=== PATIENT | female | born 1950 | race Caucasian/White ===

== ENCOUNTER 2016-06-24 08:42 | Inpatient (IN) | payer MEDICARE, OTHER ==
--- NOTE | ~2016-06-24 | HP ---
Unit #: [id number] #: [id number] Patient: VIDHYA CHASE [id number] [facility] [address] [facility]. [place], [place] [address] [id number] I MR#: [id number] NAME: VIDHYA CHASE ROOM: 26489 Age: 65 Sex: F Admission Date: 06/24/2016 : 1950 Attending Physician: Korin Jack M.D. Primary Care Physician: Kitty Nichols A.P.R.N. HISTORY AND PHYSICAL CHIEF COMPLAINT Shortness of breath. HISTORY OF PRESENT ILLNESS The patient is a 65-year-old female with history of breast cancer stage IV metastasis to liver and bones, history of PE back in 2016, was recently discharged from the [facility] status post resection of the metastatic lesion along with frozen biopsy and prophylactic fixation of the left femur with IM nailing. Discharged to [facility] at [facility]. The patient was brought from [facility] to [facility] with shortness of breath and respiratory distress with her saturations to 86% at 4 L. The patient was doing well with therapy and since then, the patient started feeling shakiness and started having nonproductive cough. The patient denies any fever. Denies any nausea or vomiting. The patient complains of soreness at the left hip but the incisions are clean, dry, and no chest pain. PAST MEDICAL HISTORY 1. History of stage IV metastatic breast cancer to ribs and liver and bone. 2. Patient had osteolytic lesions of the femur, status post IM nailing. 3. GERD. 4. Diabetes. 5. Pulmonary embolism. 6. History of irritable bowel syndrome. 7. History of asthma. PAST SURGICAL HISTORY 1. History of right breast lumpectomy. 2. Left femur frozen bone biopsy. 3. IM nailing of the left femur. 4. Cholecystectomy. 5. Hysterectomy. 6. Port placement. ALLERGIES Sulfa and codeine. SOCIAL HISTORY No history of smoking, alcohol, or any illicit drug abuse. MEDICATIONS 1. Oxycodone. Unit #: [id number] #: [id number] Patient: VIDHYA CHASE 2. Potassium chloride. 3. [place]. 4. Antacid. 5. Vitamin D3. 6. Multivitamin. 7. Lovenox. 8. Flovent. 9. Neurontin. 10. Ambien p.r.n. 11. Senokot. 12. Flomax. 13. Vitamin C. 14. Pantoprazole. 15. Turmeric complex. 16. Polyethylene glycol. 17. Loperamide. REVIEW OF SYMPTOMS A 14-point review of symptoms performed and only pertinent positive findings are described above, remaining are negative. PHYSICAL EXAMINATION GENERAL: On examination, the patient is lying on a bed not in acute distress. VITAL SIGNS: Temperature 97.9, pulse 103, respiratory rate 24, blood pressure 110/60, and saturating 86% at 4 L nasal cannula. HEENT: Head: Atraumatic, normocephalic. Pupils equal, round, and reactive to light and accommodation. Extraocular movements are intact. Dry mucous membranes. NECK: Supple. LUNGS: Decreased air entry at the bases. Positive for rhonchi. HEART: Regular rate and rhythm. ABDOMEN: Soft. EXTREMITIES: Status post IM nailing of the left femur by Dr. Elise. Positive for pedal edema. DIAGNOSTIC STUDIES LABORATORY: Glucose 97, BUN 36, creatinine 1.4, sodium 128, potassium 4.8, chloride 96, bicarbonate 25, calcium 12.5. Total protein 5.6, albumin 1.7, AST 175, ALT 55, alkaline phosphatase 300, lipase 16. BNP is 93. Lactic acid is 2.7. INR is 1.3. WBC 11, hemoglobin 9.5, hematocrit 29.3, platelets 203,000. INR is 1.3. IMAGING: Chest x-ray shows persistent xuwwo-hx-hvemqghz right pleural effusion, right basilar atelectasis/infiltrate, mild left basilar atelectasis not thought to be significantly changed compared to yesterday's study. Abnormal thickening of the right seventh rib posteriorly could represent changes related to metastatic disease or healed or healing right rib fracture. ASSESSMENT 1. Sepsis. 2. Pneumonia. 3. History of breast cancer with metastasis with mets to bone. PLAN Plan to admit to inpatient, telemetry, and sepsis protocol. IV antibiotics. Will have the pulmonary consult with Dr. Weems and repeat Unit #: [id number] #: [id number] Patient: VIDHYA CHASE the labs again in the morning and further recommendations will follow. Dictated by AmSalvador Shelton TD: 06/24/2016 12:13 JOB #: [id number] HISTORY AND PHYSICAL Page 1 of 1 X X HISTORY AND PHYSICAL
--- NOTE | ~2016-06-24 | A ---
[facility] Nutrition Therapy DATE: 06/26/16 Patient: VIDHYA CHASE Physician: ASHLI Address: [address] [place] [address] Room/Bed: [address] [place] [address], Zip: [place] [address] Admit Date: 06/24/16 Date of : [birth year] Height: 5 2 Weight: 165 75 NUTRITIONAL ASSESSMENT: REASON: MD consult re: protein malnutrition Admitting Dx: 65 y/o female admitted from [facility] with SOB, possible PNA PMH: Stage IV breast cancer w/ mets to liver and bones, PE, DM, GERD, IBS, asthma Anthropometrics: Ht: 62", Wt: 159 lbs, BMI: 29.1 (overweight), highest weight: 300 lbs Labs: Na 129, BUN 42, AST 175, ALT 55, T. bili 2.9, Alk phos 300 (06/24), GFR 38.3, no A1C or glucose POC, glucose WNL, K WNL, Mg/Phos WNL on 06/25 Meds: Tumeric complex, olive leaf extract, MVI with minerals, Vitamin C, Vitamin D, Senokot, Loperamide, Miralax, Furosemide, Tums, PPI I/O & Bowel function: Regular BM's per , last BM 06/24, abdomen distended/swollen per RD observation Skin Integrity: Redness buttocks/L heel, incision/sutures L hip/knee, scars noted Edema: GUANACO feeet 1+, general-generalized Estimated Nutrition Needs: Increased needs related to cancer Assessment: Chart reviewed, events noted. RD consulted by MD to evaluate for protein malnutrition. Patient recently discharged from [facility] s/p resection of mets lesion on femur with femur fixation and nailing. Transferred to [facility] and then [facility] after she became short of breath. She is on 5L nasal cannula. See PMH regarding Stage IV breast cancer with mets to liver and bone. states she has been battling this cancer for 14 years. Dietary and weight history is obtained from the , as the patient herself is not appropriate for interview. puts UBW around 157-160 lbs, however he states at [facility] they told him she weighed 180 lbs, which is most likely inaccurate. reports the patient intentionally lost ~100 lbs about a year and a half ago due to obesity and wanting to be healthier, max weight in lifetime is 300 lbs. states the patient's weight has been stable since the intentional weight loss over a year and a half ago. This RD previously assessed the patient on 05/21/15 due to 40 lb weight loss/ eating poorly- note reviewed- weight at that time documented as 206 lbs, ?accuracy. states they weigh the patient at the [facility] and at home often, he also assists the patient with feeding and ordering meals. He says she consistently eats "most of" 3 meals per day at home, however she does take longer to eat meals and requires prompting. Says she ate ~50% of breakfast this morning on healthy heart diet, items on tray were "light." Says she does like vanilla Ensure, which she has been receiving every [facility] DATE: 06/26/16 Patient: VIDHYA CHASE Physician: ASHLI Address: [address] [place] [address] Room/Bed: [address] [place] [address], Zip: [place] [address] Admit Date: 06/24/16 Date of : [birth year] Height: 5 2 Weight: 165 75 morning- he is requesting TID- will order. Discussed liberalizing diet to regular, encouraged him to continue to help feed her and encourage meals, giving her whatever she wants. He states she seemingly has no chewing/swallowing difficulties, just takes longer to eat meals. Although I observed moderate temporal/buccal depression suggesting some degree of muscle loss, the rest of her body is well nourished. Extra skin/stalky extremities observed, likely due to prior obesity followed by intentional weight loss. Due to the above, the patient does not meet criteria for protein calorie malnutrition. She is DNR, MD notes grave prognosis. Will liberalize diet, order supplements, and follow hospital course to further assess PO intake and nutritional needs. Please see recommendations below. Dx: Increased nutrient needs r/t increased metabolic demand AEB Stage IV cancer, need for liberalized diet and ONS. Intervention: Regular diet, Ensure TID Monitoring, Evaluation and Goals: 1. Adequate oral intake > 75% of meals. 2. Adequate supplement intake > 75% TID. 3. Maintain current weight status and lean body mass. 4. Promote regular BM's. Monitor: Per protocol, criteria to determine if above goals met Recommendations: 1. Please change diet to Regular to liberalize food choices, as the patient has increased nutrient needs related to cancer/recent surgery and high metabolic demand. Appreciate staff/family to continue to encourage oral intake and assist with feeding and ordering meals as needed. is very helpful with this. 2. Please order vanilla Ensure Enlive TID to provide extra kcals/protein to help meet increased nutrient needs. Patient eating pretty well at this time- most of 3 meals per day, however she could benefit from supplementation. 3. Fluids per MD noting hyponatremia. If TID liquid supplement intake is not desired or fluid restriction is initiated change to vanilla Ensure pudding TID, which would not cound towards oral fluid intake. 4. Please weigh q 3 days for monitoring purposes. 5. Continue bowel regimen as needed. Suggest continuing daily vitamins, however herbal [facility] DATE: 06/26/16 Patient: VIDHYA CHASE Physician: ASHLI Address: [address] [place] [address] Room/Bed: [address] [place] [address], Zip: [place] [address] Admit Date: 06/24/16 Date of : [birth year] Height: 5 2 Weight: 165 75 supplements are not recommended. 6. Due to the above assessment regarding weight, dietary history and physical assessment, the patient does not meet criteria for protein calorie malnutrition. Will continue to monitor. Mild-moderate nutrition risk Respectfully, Gina Jin RD, NA[facility] [employer] [facility] cc: client file
--- NOTE | ~2016-06-24 | CO ---
Unit #: [id number] #: [id number] Patient: VIDHYA CHASE [id number] [address] [facility]. [place], [place] [address] [id number] I MR#: [id number] NAME: VIDHYA CHASE ROOM: [facility] Age: 65 Sex: F Admission Date: 06/24/2016 : 1950 Attending Physician: Korin Jack M.D. Primary Care Physician: Kitty Nichols A.P.R.N. Consultation Date: 06/24/2016 CONSULTATION REPORT REASON FOR CONSULTATION Respiratory failure. HISTORY OF PRESENT ILLNESS This 65-year-old female, who was at [facility] not long ago, underwent left femur nailing for metastatic deposit. She then was at [facility] [place] when she developed malaise and weakness. She was sent to the emergency room and saturations were low on 4 L. The patient is fairly nonverbal. She will open her eyes and look at me and give me one word answers. She denies shortness of breath, pain, or sputum. Most of the history was gathered from her family which is at bedside. PAST MEDICAL HISTORY 1. Widely metastatic breast cancer. 2. Diabetes. 3. History of PE. 4. Gastroesophageal reflux. 5. History of irritable bowel syndrome. 6. Asthma. ALLERGIES Sulfa and codeine. MEDICATIONS According to the EHR: 1. Oxycodone. 2. Potassium. 3. Lovenox, unknown dose. 4. Flovent. 5. Neurontin. 6. Ambien. 7. Senokot. 8. Flomax. 9. Protonix. 10. Variety of vitamins and herbs. SOCIAL HISTORY She does not smoke or drink. FAMILY HISTORY No familial lung disease. REVIEW OF SYSTEMS Unit #: [id number] #: [id number] Patient: VIDHYA CHASE Essentially unobtainable. PHYSICAL EXAMINATION VITAL SIGNS: The patient is afebrile. Pulse is 96, respiratory rate 20, blood pressure is 106/55. She is 5 foot 2, 159 pounds. HEENT: Pupils equal, round, reactive to light. Sclerae anicteric. Head atraumatic. Neck supple. No supraclavicular or cervical adenopathy appreciated. Mucous membranes moist. CHEST: No wheeze, stridor. Decreased breath sounds. CARDIAC EXAMINATION: Regular rate and rhythm. There is a systolic murmur. No definite gallop. ABDOMEN: Obese. There may be some ascites. Nontender. EXTREMITIES: Massive edema bilateral lower extremities, sacrum, abdominal wall. She has right arm greater than left arm edema and the family states that this has been present, albeit to a lesser extent, since her lumpectomy and lymphadenectomy on the right. SKIN: Warm and dry without rash or diaphoresis. NEUROLOGICAL: Lethargic but will open her eyes and answer questions. Did not cooperate with a full exam. DIAGNOSTIC STUDIES IMAGING: Chest x-ray limited by body habitus, portable film, but has what appears to be a large right greater than left pleural effusions. Unclear if there is underlying infiltrate. LABORATORY: Creatinine is 1.4, sodium is 128, albumin is only 1.7, bilirubin is somewhat elevated at 2.9 but I believe she has liver mets. Lactic acid 2.5, BNP is 93, INR is 1.3, D-dimer is greater than 2000. Cardiac enzymes negative. White blood cell count 11, hemoglobin 9.5, platelet count 203. Blood cultures performed and are pending. CARDIOVASCULAR: EKG - nonspecific ST-T wave changes. IMPRESSION 1. Respiratory failure, unclear etiology: Certainly pneumonia is a possibility. Also suspect she has large bilateral pleural effusions which could be transudative secondary to her anasarca, could be malignant, could be parapneumonic. 2. Widely metastatic breast cancer. 3. Status post recent left prophylactic femur surgery. 4. Anasarca. 5. Anemia. 6. Medical problems listed above. PLAN Antibiotics. Oxygen to maintain adequate saturations. Echocardiogram, CT angiogram and a trial of Lasix. I will ask for a procalcitonin level on today's blood. Further recommendations based on above. 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 Dictated by... Unit #: [id number] #: [id number] Patient: CHASE,VIDHYA Alves M.D. NANCY/reji TD: 06/25/2016 06:08 JOB #: [id number] CONSULTATION REPORT Page 1 of 1 X Alon Alves MD CONSULTATION REPORT
--- NOTE | ~2016-06-24 | CR72 ---
[facility] A Service of [facility] RADIOLOGY TEXT RESULTS PATIENT: VIDHYA CHASE LOCATION: A 307-01 : [birth year] UNIT #: [id number] AGE: [address]: Caterina June MD SEX: F ORDER DR: [id number] [facility] [address] [facility]. [place], [place] [address] [id number] MR#: [id number] Acc #: [id number] NAME: VIDHYA CHASE : 1950 SEX: F STUDY DATE/TIME: 06/24/2016 9:03 UNIT: [facility] ROOM: STUDY DESCRIPTION: CR Chest Single View Portable Attending Physician: Ced Warner M.D. Ordering Physician: Ced Warner M.D. Primary Care Physician: Kitty Nichols A.P.R.N. MEDICAL IMAGING REPORT This report is preliminary unless electronic signature is present EXAM AP portable chest DATE 06/24/2016 0903 HISTORY 65-year-old female with stage 4 breast cancer. Shortness of breath today. Diabetes. Former smoker. Asthma. COMPARISON PA and lateral chest 06/23/2016. CT angiography of the chest with contrast 05/20/2015. FINDINGS Low volume inspiration. Wpgrs-nm-dthywajt right pleural effusion with right basilar atelectasis/consolidation again noted. Mild left basilar atelectasis or infiltrate is seen, not significantly changed. Heart size is stable. Left chest wall will catheter extends to the cavoatrial junction. No pneumothorax is visible. Multiple surgical clips are seen within the right chest wall. Multilevel degenerative endplate changes within the thoracic spine, and degenerative spurring of the left shoulder. Expansile change or thickening of the right seventh rib posteriorly could represent a healed or healing fracture or changes of osseous metastatic disease. IMPRESSION 1. Persistent epror-fd-mdpapmvk right pleural effusion with right basilar atelectasis/infiltrate, mild left basilar atelectasis, not thought to be significantly changed compared to yesterday's study. 2. Abnormal thickening of the right seventh rib posteriorly could represent changes related to metastatic disease or healed or healing right rib fracture. STS. [facility] A Service of [facility] & [facility] RADIOLOGY TEXT RESULTS PATIENT: VIDHYA CHASE LOCATION: [facility] 307-01 : [birth year] UNIT #: [id number] AGE: [address]: Caterina June MD SEX: F ORDER DR: Dictated by... Emperatriz Bhatt M.D. THIS IS AN ELECTRONICALLY VERIFIED REPORT Emperatriz Bhatt M.D. at 06/25/2016 9:41 AM PAULINA/harvey TD: 06/24/2016 10:52 JOB #: [id number] MEDICAL IMAGING REPORT Page 1 of 1 COPY
--- NOTE | ~2016-06-24 | EKG ---
PATIENT: VIDHYA CHASE UNIT #: [id number] Ventricular Rate: 99 BPM Atrial Rate: 99 BPM P-R Interval: 134 ms QRS Duration: 94 ms Q-T Interval: 334 ms QTC Calculation(Bezet): 428 ms P [place]: 15 degrees Calculated R [place]: -10 degrees Calculated T [place]: 72 degrees Diagnosis Line: Normal sinus rhythm Diagnosis Line: Baseline wander Non-specific intra-ventricular Diagnosis Line: conduction block Diagnosis Line: When compared with ECG of 20-MAY-2015 09:44, Diagnosis Line: T wave inversion now evident in Lateral leads Diagnosis Line: QT has shortened Diagnosis Line: Confirmed by CHLOE CHERRY MD ([id number]) on 06/26/2016 Diagnosis Line: 10:27:20 AM INTERPRETING MD: JO ANN JOSE
--- NOTE | ~2016-06-24 | CT57 ---
[facility] A Service of [facility] & [facility] RADIOLOGY TEXT RESULTS PATIENT: VIDHYA CHASE LOCATION: A 307- : [birth year] UNIT #: [id number] AGE: [address]: Caterina June MD SEX: F ORDER DR: [id number] [facility] [address] [facility]. [place], [place] [address] [id number] I MR#: [id number] Acc #: [id number] NAME: VIDHYA CHASE : 1950 SEX: F STUDY DATE/TIME: 06/25/2016 11:28 UNIT: A U ROOM: [facility] STUDY DESCRIPTION: CT Chest Wo Cont Attending Physician: Caterina June M.D. Ordering Physician: Caterina June M.D. Primary Care Physician: Kitty Nichols A.P.R.N. MEDICAL IMAGING REPORT This report is preliminary unless electronic signature is present EXAM CT of the chest without contrast INDICATIONS Shortness of breath and cough since June 24, 2016. TECHNIQUE Axial CT images were obtained from the thoracic inlet through the dome of the diaphragm. No oral or intravenous contrast material was administered. This CT exam was performed with one or more of the following radiation dose reduction techniques: automatic control, adjustment of mA and/or kV according to patient size, and iterative reconstruction. FINDINGS Patient is noted to have patchy infiltrates throughout both lungs. These are more pronounced on the right and are associated air bronchograms noted, I suspect this reflects multifocal pneumonia but certainly correlation with clinical presentation is recommended. Patient is noted to have some prominent mediastinal lymph nodes which have increased in size when compared to the prior exam, with a right paratracheal node measuring up to 1.9 x 1.4 cm in an AP window node measuring 1.5 x 0.9 cm. Main pulmonary artery is enlarged which can be seen in the setting of pulmonary arterial hypertension. Patient's thyroid gland is noted to be heterogeneous. There is a left subclavian MediPort which extends into the superior vena cava. There are postsurgical changes seen within the right axilla and breast. This patient's liver is markedly enlarged measuring over 19.8 cm in craniocaudal dimensions. It is also extremely heterogeneous in attenuation. This is a new finding when compared to the prior examination and I think the appearance is certainly worrisome for widespread malignant involvement of the liver. Patient is noted to have some ascites within the upper abdomen including some subdiaphragmatic fluid as well as some fluid seen at the cardiophrenic angle. The fluid at the cardiophrenic angle is present on the prior CT from May 2015 but [facility] A Service of [facility] RADIOLOGY TEXT RESULTS PATIENT: VIDHYA CHASE LOCATION: C3A 307-01 : [birth year] UNIT #: [id number] AGE: [address]: Caterina June MD SEX: F ORDER DR: certainly has increased. There is a fat-containing epigastric hernia. Review of bony windows show new lytic lesions when compared to the prior study characteristic of osseous metastatic disease. For example there is a 1.4 cm lesion noted in the T8 vertebral body. Multiple additional lesions are seen within the ribs including some of which appear to be associated pathologic fractures. Scapular and humeral involvement is noted as well. IMPRESSION 1. Patient does have infiltrates, within both lungs. These certainly could reflect a multifocal pneumonia. Underlying neoplastic component cannot be excluded however in a patient with evidence of widespread metastatic disease. Short-term followup exam to document resolution is suggested. Patient is also noted to have some enlarged mediastinal nodes. These certainly could be reactive, in the setting of pneumonia. Again the possibility of additional malignant involvement certainly is not excluded. 2. Cirrhotic morphology to the liver with suspicion for diffuse metastatic involvement. Liver is markedly enlarged, patient also has evidence of widespread osseous metastatic disease as well. 3. Trace right pleural effusions small, loculated left pleural effusion. 4. Please see the body of report for other additional incidental findings. Dictated by... Rani Olivera M.D. THIS IS AN ELECTRONICALLY VERIFIED REPORT Rani Olivera M.D. at 06/25/2016 4:14 PM AFF/rnr TD: 06/25/2016 12:35 JOB #: [id number] MEDICAL IMAGING REPORT Page 1 of 1 COPY
--- NOTE | ~2016-06-24 | DS ---
Unit #: [id number] #: [id number] Patient: VIDHYA CHASE [id number] [address] [id number] MR#: [id number] NAME: VIDHYA CHASE ROOM: [facility] Age: 66 Sex: F Admission Date: 06/24/2016 : 1950 Discharge Date: 07/01/2016 Attending Physician: Caterina June M.D. Primary Care Physician: Kitty Nichols A.P.R.N. DISCHARGE SUMMARY DISCHARGE DIAGNOSES 1. Sepsis due to pneumonia. 2. Hepatic encephalopathy. 3. History of breast cancer with metastases to bone, liver and possibly lung as well. 4. Anasarca due to liver failure. 5. Severe protein malnutrition. 6. History of diabetes. 7. History of recent pulmonary embolism. 8. History of irritable bowel syndrome. 9. History of asthma. 10. Urinary retention. Will be discharged with a catheter. 11. Hyponatremia, likely due to liver disease. 12. DNR status. CONSULTANTS Dr. Alves of pulmonary. Hospice. PROCEDURES PERFORMED None. DIAGNOSTIC DATA IMAGING: Chest x-ray on 06/24/2016 with impression of persistent small to moderate right pleural effusion with right basilar atelectasis infiltrate. Mild left bilateral atelectasis, not thought to be significantly changed compared to the day before exam. Abnormal thickening of the right seventh rib posteriorly. Could represent changes related to metastatic disease or healing right rib fracture. Bilateral Doppler ultrasound with impression of negative examination. No evidence of lower extremity deep venous thrombosis. CT of the chest without contrast done on 06/27/2016 with impression that the patient does have infiltrates within both lungs. These certainly could represent a multifocal pneumonia, underlying neoplastic component cannot be excluded. However, in a patient with evidence of widespread metastatic disease, short-term follow-up examination to document resolution is suggested. The patient is also noted to have some enlarged mediastinal nodes. These certainly could be reactive in the setting of pneumonia. Again, the possibility of additional malignant involvement certainly is not excluded. Cirrhotic morphology of the liver with suspicion of diffuse metastatic involvement. The liver is markedly enlarged. The patient also has evidence of widespread osseous metastatic Unit #: [id number] #: [id number] Patient: CHASE,VIDHYA disease as well. Trace right pleural effusion, small loculated left pleural effusion. LABORATORY: Last lab was on 06/29/2016, BMP glucose 88, BUN 48, creatinine 1.2, sodium 131, potassium 3.6, chloride 98, CO2 26, calcium 14.1, protein 5.6, albumin 1.4, AST 374, ALT 125, alkaline phosphatase 392. CBC, white blood cell count 10.7, RBC 3.6, hemoglobin 10.0, hematocrit 30.3, MCV 49.1, MCH 32.0, MCHC 33.1, RDW 20.2, platelets 158, MVV 8.4. HOSPITAL COURSE The patient is a pleasant 66-year-old female with a past medical history of breast cancer, stage 4, with metastases to the livery and bones, as well as pulmonary embolism. In 2005 the patient was discharged from [facility] after resection of the metastatic bone lesion along with frozen biopsy and prophylactic fixation of the left femur with intramedullary nailing. The patient was discharged to [facility] at [facility]. She was brought from [facility] due to shortness of breath, slowed (1) oxygen status. She was found with a pO2 of 86% on 4 liters on admission. The family was noticing the patient was more and more lethargic. She was admitted for sepsis due to pneumonia and Dr. Alves of pulmonary had seen the patient in consultation. The patient was treated with aggressive IV antibiotics. With her being unresponsive in terms of mental status to the IV fluids and IV antibiotics and given the fact that the patient does have metastases to the liver an ammonia level was checked and was found to be elevated at 71. Lactulose with rifaximin was initiated. The patient did not seem to respond to this very well. There was a long discussion with the patient's as well as the daughters. The patient has been battling cancer for the past 14 years and has had much decline in the past couple of years. At this time it is felt to be in the patient's best interest to meet with Hospice, which they have done. It was determined that the patient would be a do not resuscitate, do not intubate code status if something should happen. We will not take any heroic measures. This is per the patient's and husbands' stated wishes. She is at this time discharged to Hospice. I have spoken to the patient's as well as Hospice and the patient is best to be treated inpatient due to her drastic decline. The patient's and her daughter have denied this need. The patient's daughter states that she is a nurse and would be able to care for her Mom at home. Hospice is in the process to assist with home equipment for the comfort of the patient. DISPOSITION Discharge to home under Hospice care. FOLLOWUP Hospice can follow up with her for any additional needs. DISCHARGE MEDICATIONS We will be stopping all medicines and leaving the patient with a catheter for comfort measures. Please note that this discharge took 45 minutes, including patient education and to coordinate care. Dictated by... Felipe Marion PA-C for Rudy Ceballos M.D. Unit #: [id number] #: [id number] Patient: VIDHYA CHASE TP/gz TD: 07/02/2016 08:01 JOB #: [id number] DISCHARGE SUMMARY Page 1 of 1 X X DISCHARGE SUMMARY
[~2016-06-24 08:42] MED LIST: AMBIEN10 MG PO; ANTACID300 MG PO; COMPAZINE10 M1 PO; COMPAZINE25 MG PR; FUROSEMIDE40 MG PO; LOVENOX40 MG/0.4 INJ; NEURONTIN300 MG PO; OLIVE LEAF EXT250 MG PO; OMNICEF PO; OXYCODONE HCL5 MG PO; POTASSIUM CHLO10 MEQ PO; TAXOTERE20 MG/1 ML IV; VITAMIN B650 MG PO; VITAMIN D350000 UNIT PO; ZEGERID OTC 201 EACH PO; ZOFRAN PO; ZOMETA 4 M4 MG/100 M IV
[2016-06-24 09:13] LABS: BASOPHIL% 0.1 % (0-2.5); EOSINOPHIL% 0.1 % (0.0-7.0); HEMATOCRIT 29.3 % (35.0-45.0); HEMOGLOBIN 9.5 gm/dL (12.0-16.0); LYMPHOCYTE# 1.8 X10e3 (1.0-3.5); MEAN CELL VOLUME 100.4 FL (83-96); MEAN CORPUSCULAR HEMOGLOBIN 32.5 PG (28-34); MEAN CORPUSCULAR HGB CONC 32.3 g/dL (30-36); MEAN PLATELET VOLUME 7.3 FL (6.5-11.5); MONOCYTE# 0.8 X10e3 (0-1.0); MONOCYTE% 7.5 % (3.0-12.0); NEUTROPHIL# 8.4 X10e3 (1.5-7.1); NEUTROPHIL% 76.3 % (40-75); PLATELET COUNT 203 X10e3 (140-420); RED BLOOD COUNT 2.92 X10e (3.90-5.30); RED CELL DISTRIBUTION WIDTH 19.4 % (11.0-15.5)
[2016-06-24 09:16] LABS: DIFF IND NO
[2016-06-24 09:26] LABS: POC - CKMB <1.0 ng/mL (0.0-7.9); POC - TROPONIN <0.05 ng/mL (<=0.05)
[2016-06-24 09:32] LABS: INR 1.3; PROTHROMBIN TIME (PATIENT) 13.5 SECONDS (9.6-11.5)
[2016-06-24 09:40] LABS: ALBUMIN SERUM 1.7 g/dL (3.5-5.0); BILIRUBIN, DIRECT 1.5 mg/dL (0.0-0.2); BILIRUBIN,INDIRECT 1.4 mg/dL (0.0-0.9); BILIRUBIN,TOTAL 2.9 mg/dL (0.2-2.0); BUN/CREATININE RATIO 25.71; CALCIUM SERUM 12.5 mg/dL (8.4-10.2); CREATININE SERUM 1.4 mg/dL (0.6-1.4); GLOM FILT RATE Estimated 38.8 mL/min (>60); POTASSIUM 4.8 mmol/L (3.5-5.1); PROTEIN TOTAL SERUM 5.6 g/dL (6.0-8.3)
[2016-06-24] MEDS ORDERED: FLOVENT DISKU100 MCG INH (11:16)
[2016-06-24] MEDS ORDERED: TURMERIC COMPL1 EACH PO (11:17)
[2016-06-24] MEDS ORDERED: MULTI VITAMIN1 EACH PO (11:17)
[2016-06-24] MEDS ORDERED: VITAMIN C500 MG PO (11:18)
[2016-06-24] MEDS ORDERED: PANTOPRAZOLE SO40 MG PO (11:18)
[2016-06-24] MEDS ORDERED: FLOMAX0.4 M1 PO ×2 (11:19)
[2016-06-24] MEDS ORDERED: SENNA PO (11:20)
[2016-06-24] MEDS ORDERED: LOPERAMIDE HCL2 M1 PO (11:21)
[2016-06-24] MEDS ORDERED: POLYETHYLENE GLY1 GM PO (11:22)
[2016-06-25 11:39] LABS: HEMATOCRIT 27.5 % (35.0-45.0); HEMOGLOBIN 9.2 gm/dL (12.0-16.0); MEAN CELL VOLUME 100.2 FL (83-96); MEAN CORPUSCULAR HEMOGLOBIN 33.4 PG (28-34); MEAN CORPUSCULAR HGB CONC 33.3 g/dL (30-36); MEAN PLATELET VOLUME 7.7 FL (6.5-11.5); RED BLOOD COUNT 2.75 X10e (3.90-5.30); RED CELL DISTRIBUTION WIDTH 19.9 % (11.0-15.5); WHITE BLOOD COUNT 10.6 X10e3 (4.0-10.5)
[2016-06-25 12:06] LABS: BUN/CREATININE RATIO 29.28; CALCIUM SERUM 12.1 mg/dL (8.4-10.2); CREATININE SERUM 1.4 mg/dL (0.6-1.4); GLOM FILT RATE Estimated 38.8 mL/min (>60); PHOSPHOROUS 3.7 mg/dL (2.5-4.6); POTASSIUM 3.9 mmol/L (3.5-5.1)
[2016-06-26 04:54] LABS: HEMATOCRIT 26.8 % (35.0-45.0); HEMOGLOBIN 8.8 gm/dL (12.0-16.0); MEAN CELL VOLUME 99.5 FL (83-96); MEAN CORPUSCULAR HEMOGLOBIN 32.8 PG (28-34); MEAN CORPUSCULAR HGB CONC 32.9 g/dL (30-36); MEAN PLATELET VOLUME 7.7 FL (6.5-11.5); RED BLOOD COUNT 2.7 X10e (3.90-5.30); RED CELL DISTRIBUTION WIDTH 19.9 % (11.0-15.5); WHITE BLOOD COUNT 9.9 X10e3 (4.0-10.5)
[2016-06-26 06:01] LABS: CALCIUM SERUM 12.1 mg/dL (8.4-10.2); CREATININE SERUM 1.4 mg/dL (0.6-1.4); GLOM FILT RATE Estimated 38.8 mL/min (>60); POTASSIUM 4.2 mmol/L (3.5-5.1)
[2016-06-26 07:02] LABS: SODIUM URINE RANDOM 14 mmol/L
[2016-06-26 07:30] LABS: OSMOLALITY,URINE 451 mOsmo/kg (250-900)
[2016-06-27 06:51] LABS: BUN/CREATININE RATIO 33.84; CALCIUM SERUM 12.6 mg/dL (8.4-10.2); CREATININE SERUM 1.3 mg/dL (0.6-1.4); GLOM FILT RATE Estimated 42.1 mL/min (>60); POTASSIUM 4.4 mmol/L (3.5-5.1)
[2016-06-28 06:36] LABS: HEMATOCRIT 29.8 % (35.0-45.0); HEMOGLOBIN 9.8 gm/dL (12.0-16.0); MEAN CELL VOLUME 99.9 FL (83-96); MEAN CORPUSCULAR HEMOGLOBIN 32.8 PG (28-34); MEAN CORPUSCULAR HGB CONC 32.9 g/dL (30-36); MEAN PLATELET VOLUME 8.4 FL (6.5-11.5); RED BLOOD COUNT 2.99 X10e (3.90-5.30); RED CELL DISTRIBUTION WIDTH 19.6 % (11.0-15.5); WHITE BLOOD COUNT 10.1 X10e3 (4.0-10.5)
[2016-06-28 07:37] LABS: BUN/CREATININE RATIO 36.66; CALCIUM SERUM 13.5 mg/dL (8.4-10.2); CREATININE SERUM 1.2 mg/dL (0.6-1.4); GLOM FILT RATE Estimated 46.4 mL/min (>60); POTASSIUM 3.7 mmol/L (3.5-5.1)
[2016-06-29 06:51] LABS: HEMATOCRIT 30.3 % (35.0-45.0); MEAN CELL VOLUME 99.1 FL (83-96); MEAN CORPUSCULAR HEMOGLOBIN 32.8 PG (28-34); MEAN CORPUSCULAR HGB CONC 33.1 g/dL (30-36); MEAN PLATELET VOLUME 8.4 FL (6.5-11.5); RED BLOOD COUNT 3.06 X10e (3.90-5.30); RED CELL DISTRIBUTION WIDTH 20.2 % (11.0-15.5); WHITE BLOOD COUNT 10.7 X10e3 (4.0-10.5)
[2016-06-29 07:04] LABS: INR 1.3; PROTHROMBIN TIME (PATIENT) 13.9 SECONDS (9.6-11.5)
[2016-06-29 07:26] LABS: ALBUMIN SERUM 1.5 g/dL (3.5-5.0); BILIRUBIN,TOTAL 2.9 mg/dL (0.2-2.0); CREATININE SERUM 1.2 mg/dL (0.6-1.4); GLOM FILT RATE Estimated 46.4 mL/min (>60); POTASSIUM 3.6 mmol/L (3.5-5.1); PROTEIN TOTAL SERUM 5.6 g/dL (6.0-8.3)
[2016-06-29 07:33] LABS: CALCIUM SERUM 14.1 mg/dL (8.4-10.2)
== END 2016-07-01 15:10 | DRG 871 ==
LOC: CED 08:42 → CEDOF 10:18 → CED 10:42 → C3A PCU 10:42 → CEDOF 13:43 → C3A PCU 06-25 07:21
PROVIDERS: Emergency Medicine; Family Medicine; Internal Medicine
PROC: B24BYZZ Ultrasonography of Heart with Aorta using Other Contrast (ICD-10-PCS; principal; 2016-06-25)
DX: A41.9 Sepsis, unspecified organism (principal); J18.9 Pneumonia, unspecified organism; J96.01 Acute respiratory failure with hypoxia; E43 Unspecified severe protein-calorie malnutrition; C78.7 Secondary malignant neoplasm of liver and intrahepatic bile duct; C50.919 Malignant neoplasm of unspecified site of unspecified female breast; C79.51 Secondary malignant neoplasm of bone; D64.9 Anemia, unspecified; E87.1 Hypo-osmolality and hyponatremia; K21.9 Gastro-esophageal reflux disease without esophagitis; E11.9 Type 2 diabetes mellitus without complications; Z86.711 Personal history of pulmonary embolism; J45.909 Unspecified asthma, uncomplicated; Z90.49 Acquired absence of other specified parts of digestive tract; Z90.710 Acquired absence of both cervix and uterus; Z88.2 Allergy status to sulfonamides; R33.9 Retention of urine, unspecified; K72.90 Hepatic failure, unspecified without coma; Z51.5 Encounter for palliative care; R62.7 Adult failure to thrive; Z66 Do not resuscitate; Z68.29 Body mass index [BMI] 29.0-29.9, adult
CPT/HCPCS: 71010; 71250; 80048; 80053; 80076; 80202; 82140; 82308; 82330; 82553; 82947; 83605; 83735; 83880; 83930; 83935; 84100; 84300; 84484; 85025; 85027; 85379; 85610; 87040; 92526; 92610; 93005; 93306; 93970; 94640; 94664; 94760; 99291; G8996-GN; G8997-GN; J0456; J0692; J1650; J1940; J2270; J2543; J3260; J3370